=== PATIENT | female | born 1935 | race Caucasian/White ===

== ENCOUNTER 2017-02-26 07:22 | Outpatient (CLI) | payer MEDICARE, OTHER ==
[2013-10-13 15:34] VITALS: BP 178/72
[2017-02-26 08:06] LABS: eGFR (African) > 60; eGFR (Non-African) > 60
== END 2017-02-26 07:23 ==
LOC: LAB 07:22
PROVIDERS: ATTEND Physician Assistant
DX: E78.2 Mixed hyperlipidemia (principal); I10 Essential (primary) hypertension
CPT/HCPCS: 36415; 80053; 80061

== ENCOUNTER 2017-04-28 07:47 | Outpatient (CLI) | payer MEDICARE, OTHER ==
[2013-10-13 15:34] VITALS: BP 178/72
[2017-04-28 08:11] LABS: BASOPHILS % 0.8 (0.0-1.5); EOSINOPHILS % 3.1 % (0.0-6.8); MEAN CORPUSCULAR HEMOGLOBIN 30.1 pg (28.0-34.0); MEAN CORPUSCULAR VOLUME 90.4 fl (80.0-100.0); NEUTROPHILS # 3.2 # k/uL (1.4-7.7)
[2017-04-28 08:27] LABS: eGFR (African) > 60; eGFR (Non-African) > 60
== END 2017-04-28 09:02 ==
LOC: LAB 07:47
PROVIDERS: ATTEND Family Medicine
DX: R42 Dizziness and giddiness (principal); Z79.899 Other long term (current) drug therapy; E55.9 Vitamin D deficiency, unspecified; E78.2 Mixed hyperlipidemia
CPT/HCPCS: 36415; 80053; 80061; 80177; 82306; 85025

== ENCOUNTER 2017-06-24 16:05 | Outpatient (CLI) | payer MEDICARE, OTHER ==
[2013-10-13 15:34] VITALS: BP 178/72
== END 2017-06-24 16:30 ==
LOC: RAD 16:05
PROVIDERS: ATTEND Family Medicine
DX: R13.11 Dysphagia, oral phase (principal)
CPT/HCPCS: 74230

== ENCOUNTER 2017-08-12 14:35 | Outpatient (CLI) | payer MEDICARE, OTHER ==
[2013-10-13 15:34] VITALS: BP 178/72
--- NOTE | 2017-08-13 10:39 | OP Clinic Progress Note ---
REASON FOR VISIT: This delightful 81-year-old lady is seen accompanied by her who does a lot of the talking. By history, she has had some problems with coughing and swallowing. I retrieved a video swallow done several months ago and it is close to normal, certainly no severe abnormality and no obvious aspiration. When she tucks her chin down for some period of time, she begins to cough. Also , sometimes when she swallows, she chokes on things, particularly if they are extra dry or particularly big. Again, the video swallow, which is a good appropriate test to order, is essentially normal or it does not show any significant abnormality. Separately, but sometimes related, she has an exudate in the right ear canal. There is a hard brown pasty thin veneer covering the entire ear canal and the eardrum itself. Under the microscope in the clinic, I peeled this out entirely. I placed Gentamicin eardrops in the ear. I have written a prescription for once a day Gentamicin Ophthalmic Drops for that right ear. There is absolutely no hole in the eardrum and Gentamicin is ototoxic to the inner ear but there is absolutely no hole of the eardrum and this was looked at carefully with a microscope. Sometimes, there is also a neurogenic cough. In that regard, I have given her a trial of Elavil 25 mg 1 pill a day. I will see her back in 2 or 3 weeks. Also, by palpation, there is no evident neck mass. I used a flexible fiberoptic laryngoscope and got a good look at the nasopharynx, posterior oropharynx, tongue base, supraglottic larynx, and larynx. The vocal cords abduct and adduct well. There is no inflammation, masses, nor paralysis. There is a little thickening in the right pyriform sinus. There is no palpable mass nor no visible mass. PLAN: Again, on an empiric basis, I have given her a trial on Elavil 25 mg a day and see how she does, along with using the eardrops for the right ear and simply reassess in 2 or 3 weeks. cc: Dr. Rosetta ACEVEDO
== END 2017-08-12 14:36 ==
LOC: ENT 14:35
PROVIDERS: ATTEND Otolaryngology
DX: R13.11 Dysphagia, oral phase (principal)
CPT/HCPCS: G0463

== ENCOUNTER 2017-09-02 14:08 | Outpatient (CLI) | payer MEDICARE, OTHER ==
[2013-10-13 15:34] VITALS: BP 178/72
--- NOTE | 2017-09-03 10:38 | OP Clinic Progress Note ---
REASON FOR VISIT: This 80-year-old lady is seen accompanied by her who provides at least a moderate amount of the history. She has been seen with a history of a cough. A number of medications have not made any difference. On a trial basis, she has been given Elavil 25 mg a day. Initially, there was fairly significant improvement and then slowly the cough has come back. It is still not to the same degree that it had been when she initially began the treatment with the Elavil. The idea was that she had more of a neurogenic cough. Palpation of the neck had no evident palpable masses. Flexible fiberoptic laryngoscopy had not evident mass or lesion. There is no paralysis or cyst of the vocal cords and generally, she is not really hoarse. There is no undue erythema. No granulation tissue. PLAN: Slowly the cough has come back after fairly significant improvement initially. There can be some habituation to this medication; and as opposed to trying to find a different avenue, I have increased the dose but just by a small amount. I have asked her to take 1-1/2 tablets of the 25 mg of Elavil a day. I will see her back in the middle of October. cc: Dr. Rosetta ACEVEDO
== END 2017-09-02 14:13 ==
LOC: ENT 14:08
PROVIDERS: ATTEND Otolaryngology
DX: R05 Cough (principal)
CPT/HCPCS: 31575; G0463

== ENCOUNTER 2017-10-21 13:05 | Outpatient (CLI) | payer MEDICARE, OTHER ==
[2013-10-13 15:34] VITALS: BP 178/72
--- NOTE | 2017-10-22 09:13 | OP Clinic Progress Note ---
REASON FOR VISIT: Magnolia is being seen for some degree of a chronic cough. The duration seems to go either between forever and maybe 6 months. Her accompanies her. He facilitates with answering some of the questions. Some of this is because Magnolia does not hear well by history and they do not have the specifics of that. Again, I re-looked at her larynx. Although the vocal cords are very slightly bowed, there is no polyps or paralysis. There is no marked or increased erythema. There is grossly no severe inflammation in the interarytenoid area. Other possible contributing factors are both a history of reflux and a history of asthma for which she takes 2 inhalers. Although there is no obvious answer looking at the larynx for the first time or the second time, considerations may relate more to the patient's history. An interesting observation they make is that a lot of the cough is more severe when she tucks her head down. Whether this is when she is reading or doing a number of handiwork things particularly in the evening. Of note, they have not had their air ducts cleaned ever. The ideal that it may be a neurogenic-type of cough has not been successful and she continues to have no real improvement, although she does not seem to have any negative side effects from it. One could opt for upping the dosage. PLAN: I have asked them to try a different medication and to try Tessalon Perles at 200 mg and just take 1 sometime in the afternoon and see whether that has some effect. I have encouraged them to consider having their air ducts cleaned as they state this has never been done for their house and she does have a history of asthma for no obvious reason. I have asked them to recheck with this plan. I would comment that the stated that he did not intend to have the air ducts in their house cleaned currently. cc: Dr. Rosetta ACEVEDO
== END 2017-10-21 14:05 ==
LOC: OUT 13:05
PROVIDERS: ATTEND Otolaryngology
DX: R05 Cough (principal); J45.909 Unspecified asthma, uncomplicated
CPT/HCPCS: G0463

== ENCOUNTER 2018-04-12 14:49 | Outpatient (CLI) | payer MEDICARE, OTHER ==
[2013-10-13 15:34] VITALS: BP 178/72
--- NOTE | 2018-04-12 16:57 | Diagnostic Imaging Report ---
ADITYA ASENCIO [facility] [address] [facility] [address] [address] Report Submission Date: Apr 12, 2018 4:01:35 PM CDT Patient Study Name: VICKY SAENZ Date: Apr 12, 2018 3:21:03 PM CDT Modality Type: DX Gender: F Description: LOWER EXTREMITY : 31 Institution: [facility] Physician: ADITYA ASENCIO Examination: Plain film right foot History: CONTUSION (Hx) Findings: 3 views of the right foot demonstrates osteopenia. Articular degenerative changes. No fracture or dislocation. Calcaneal spurs. No soft tissue swelling. No joint effusion. Impression: Osteopenia and degenerative changes. No fracture. Electronically signed on Apr 12, 2018 4:01:35 PM CDT by: Ty ACEVEDO
== END 2018-04-12 14:50 ==
LOC: RAD 14:49
PROVIDERS: ATTEND Family Medicine
DX: S90.31XA Contusion of right foot, initial encounter (principal); Y92.9 Unspecified place or not applicable; Y93.9 Activity, unspecified; Y99.9 Unspecified external cause status
CPT/HCPCS: 73630

== ENCOUNTER 2018-04-27 12:08 | Outpatient (CLI) | payer MEDICARE, OTHER ==
[2013-10-13 15:34] VITALS: BP 178/72
--- NOTE | 2018-04-30 09:22 | HISTORY AND PHYSICAL REPORT ---
REFERRING PHYSICIAN: Dr. Rosetta Mccall Dear Dr. Mccall: HISTORY OF PRESENT ILLNESS: I had the opportunity of seeing Magnolia Hutton today. This is a delightful 82- year-old white female who presents today with her , Yogesh. She has a greater than 5 year history of low back pain. She indicates it is on her left side, low back, and lumbosacral in nature with more pain when she is standing and walking and relief with sitting but then the pain returns after she sits for a while. She denies leg pain. She denies incontinence of bowel or bladder. She denies symptoms of neurogenic claudication. She was in the [place] area and had an MRI done while she was there and they told her she needed back surgery but because of her past medical history, it was not an option. She tells me that I treated her family members and she would like to see if I could do anything to relieve her left-sided back pain symptoms. PAST MEDICAL HISTORY: 1. History of a CVA x3. 2. Respiratory disease. 3. Hypertension. 4. Chronic pain problems. 5. Cardiovascular disease. PAST SURGICAL HISTORY: 1. Tonsillectomy. 2. Sinus surgery. 3. Cardiac stents. CURRENT DAILY MEDICATIONS: 1. Plavix 75 mg daily. 2. Atorvastatin 40 mg daily. 3. ProAir inhaler 90 mcg 2 puffs b.i.d. 4. Metoprolol 100 mg b.i.d. 5. Oxybutynin 5 mg b.i.d. 6. Qvar inhaler 80 mcg 2 puffs b.i.d. 7. Losartan/HCTZ 100/12.5 mg daily. 8. Desloratadine 5 mg daily. 9. Aspirin 81 mg daily. 10. Garlic 1000 mg daily. 11. Lecithin 1200 mg daily. 12. Cinnamon 1000 mg daily. 13. Calcium 600 mg daily. 14. Flonase 2 sprays per nostrils daily. ALLERGIES: She has no known drug allergies. SOCIAL HISTORY: She is . She lives at home with her . She is a former smoker. She quit 50 plus years ago. Drinks alcohol rarely on a social occasion. Denies recreational drugs. Unknown employment or disability status. FAMILY HISTORY: Mother with pain problems related to her arthritis. Father with heart disease. REVIEW OF SYSTEMS: No complaints for review of systems within the last month or so. Pain is worsened with prolonged standing in one position or increased physical activity and bending. Pain is improved with sitting, laying, and at rest. PHYSICAL EXAMINATION: Vital Signs: BP: 140/80, P: 75, R: 18, oxygen saturation is 97% on room air. General: The patient is a well nourished, well developed female in no apparent distress. Awake, alert, and oriented. HEENT: Pupils are equal, round, and reactive to light and accommodation. Extraocular movements intact. No facial droop. Neck: There is full range of motion of the cervical spine. No evidence of adenopathy. Thyroid is nontender, not enlarged. Carotids are without bruits. Chest: Clear to auscultation bilaterally. Normal chest excursion. Heart: Regular rate and rhythm without murmur. Abdomen: Benign. Normoactive bowel sounds. Motor/sensory: Intact in the upper and lower extremities. Moves all extremities freely. Back: There is a positive assisted extension and extension rotation finding. There is reproducible positive pain over the left lumbosacral facets. Negative straight leg raise. Negative femoral nerve stretch. Negative GEORGE. Strength is 5/5 and equal in the lower extremities. Dorsiflexion and plantar flexion of the feet are intact. 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 PLAN: I believe that this nice lady is having facet mediated pain on the left side that is identifiable. She had a positive assisted extension and extension rotation finding and focal back pain. She in fact tells me that after I palpated the joint, the pain seemed to have gone away, and I have recommended a facet medial branch block at L5 and sacral ala and possibly L4 and possible radiofrequency neurolysis. There is a considerable concern regarding a cerebrovascular accident in coming off of Plavix. I am going to defer to Dr. Mccall and see if she would like to assist us with a Lovenox bridge. I will initiate physical therapy and ultrasound at this time, as this may help, but I do not think this patient would be a candidate for interventional therapy because of her propensity for bleeding and bruising on Plavix. cc: Dr. Rosetta ACEVEDO
== END 2018-04-27 12:10 ==
LOC: OUT 12:08
PROVIDERS: ATTEND Anesthesiology Pain Medicine
DX: M46.96 Unspecified inflammatory spondylopathy, lumbar region (principal); Z79.01 Long term (current) use of anticoagulants
CPT/HCPCS: 99213; 99214; G0463

== ENCOUNTER 2018-06-09 08:15 | Emergency (ER) | payer MEDICARE, OTHER ==
--- NOTE | 2018-06-09 08:22 | ED Physician Documentation ---
General Adult - HISTORIAN Historian: patient - HPI Stated Complaint: skin tear Chief Complaint: General Adult Onset: hours (1) Timing: still present Severity: mild Further Comments: yes (she hit her leg on the curb and she is on a blood thinner.) - ROS CONST: no problems EYES/ENT: none CVS/RESP: none GI/: none MS/SKIN/LYMPH: none NEURO/PSYCH: denies: headache, dizziness - PAST HX Past History: hypertension, other (chronic low back pain ) Other History: none Surgeries/Procedures: none Immunizations: UTD Allergies/Adverse Reactions: Allergies Allergy/AdvReac Type Severity Reaction Status Date / Time No Known Allergies Allergy Unverified 06/09/18 08:32 Home Medications: Ambulatory Orders Medication Instructions Recorded Aspirin 81 mg PO DAILY u2 02/25/17 - SOCIAL HX Smoking History: cigarettes Alcohol Use: none Drug Use: none - FAMILY HX Family History: No - VITAL SIGNS Vital Signs: Vital Signs Temp Pulse Resp BP Pulse Ox 178/72 10/13/13 15:26 - REVIEWED ASSESSMENTS Nursing Assessment Reviewed: Yes Vitals Reviewed: Yes General Adult Physical Exam - PHYSICAL EXAM GENERAL APPEARANCE: no distress EENT: eye inspection normal NECK: normal inspection RESPIRATORY: no resp distress, chest non-tender, breath sounds normal CVS: reg rate & rhythm, heart sounds normal, equal pulses, no murmur ABDOMEN: soft SKIN: other (4 in long superfical skin tear on right lower leg ) EXTREMITIES: non-tender NEURO: oriented X3, CN's nml as tested, motor nml, sensation nml, mood/affect nml, cognition normal Discharge Clincal Impression: Skin tear Referrals: Rosetta Mccall MD [Primary Care Provider] - 2 Days Comments: 1. Keep area clean and dry 2. Elevate when possible 3. Any increased redness, drainage, swelling or other signs of infection notify PCP 4. Return to ER For any concerns Condition: Stable Disposition: 01 HOME, SELF-CARE Decision to Admit: NO Date of Decison to Admit: 06/09/18 Decision Time: 09:01
[2018-06-09 09:08] VITALS: BP 177/66
== END 2018-06-09 09:05 | disposition home or self-care (01) ==
LOC: ED 08:15
DX: S81.801A Unspecified open wound, right lower leg, initial encounter (principal); W19.XXXA Unspecified fall, initial encounter; Y92.9 Unspecified place or not applicable; Y93.9 Activity, unspecified; Y99.9 Unspecified external cause status
CPT/HCPCS: 99282

== ENCOUNTER 2018-06-22 08:38 | Emergency (ER) | payer MEDICARE, OTHER ==
--- NOTE | 2018-06-22 09:19 | ED Physician Documentation ---
General Adult - HISTORIAN Historian: patient - HPI Stated Complaint: wound draining Chief Complaint: Lower Extremity Problem - ROS CONST: no problems. denies: fever, chills CVS/RESP: denies: cough - PAST HX Past History: asthma, other (CAD, hyperlipidemia) Other History: other (s/p CVAs) Surgeries/Procedures: other (tonsilectomy, cardiac stentning) Immunizations: referred to PCP Allergies/Adverse Reactions: Allergies Allergy/AdvReac Type Severity Reaction Status Date / Time No Known Allergies Allergy Verified 06/22/18 09:17 Home Medications: Ambulatory Orders Medication Instructions Recorded Aspirin 81 mg PO DAILY u2 02/25/17 Cephalexin [Keflex] 500 mg PO TID #21 capsule 06/22/18 Cephalexin [Keflex] 500 mg PO TID #21 capsule 06/22/18 - SOCIAL HX Smoking History: non-smoker Alcohol Use: none Drug Use: none - FAMILY HX Family History: Yes (CAD, CVA) - VITAL SIGNS Vital Signs: Vital Signs Temp Pulse Resp BP Pulse Ox 97.9 F 80 16 163/76 06/22/18 08:52 06/22/18 08:52 06/22/18 08:52 06/22/18 08:52 - REVIEWED ASSESSMENTS Nursing Assessment Reviewed: Yes Vitals Reviewed: Yes General Adult Physical Exam - PHYSICAL EXAM GENERAL APPEARANCE: no distress RESPIRATORY: no resp distress, chest non-tender, breath sounds normal. No: wheezes, rales, rhonchi CVS: reg rate & rhythm, heart sounds normal, equal pulses, no murmur, no gallop SKIN: other (Patient has a c shape skin tear to the medial lower right leg associated with some swelling nd erythema (about 10 cm above wuond and down into the ankle area). Skin over the wound is movable like a blister. Very little clear serosanguinous drainable on dressing. ) EXTREMITIES: non-tender NEURO: oriented X3, mood/affect nml, cognition normal Discharge Clincal Impression: Cellulitis of leg, right Prescriptions: Cephalexin [Keflex] 500 mg PO TID #21 capsule Cephalexin [Keflex] 500 mg PO TID #21 capsule Referrals: Rosetta Mccall MD [Primary Care Provider] - 2 Days Additional Instructions: Continue to dress the foot as you have been with nonadherent dressing, then wrap with gauze. Take cephalexin three times a day as directed. Appointment with Dr Newell at 9:45 AM on ThursdayJune 28. Condition: Stable Disposition: 01 HOME, SELF-CARE Decision to Admit: NO Date of Decison to Admit: 06/22/18 Decision Time: 09:19
[2018-06-22 09:42] VITALS: BP 196/75
== END 2018-06-22 09:35 | disposition home or self-care (01) ==
LOC: ED 08:38
DX: L03.115 Cellulitis of right lower limb (principal)
CPT/HCPCS: 99282

== ENCOUNTER 2018-08-27 12:04 | Emergency (ER) | payer MEDICARE, OTHER ==
--- NOTE | 2018-08-27 12:23 | ED Physician Documentation ---
Upper Extremity Injury - HISTORIAN Historian: patient - HPI Stated Complaint: Right Shoulder Discomfort Chief Complaint: Shoulder Injury/ Pain Onset: days ago (3) Where: home Severity: mild Duration: persistent since Context: other (She reports she "slept hard" arm was bent when she woke up and she has had pain in her shoulder/arm since. She does not take Ibuprofen due to blood thinners. She is taking tylenol and this alone is not helping much. Denies any other pain or issues ) Modifying Factors: pain on movement - ROS CONST: no problems CVS/RESP: none NEURO: none MS/SKIN/LYMPH: other (right arm pain ) GI/: denies: nausea, vomiting - PAST HX Past History: other (hypertension ) Allergies/Adverse Reactions: Allergies Allergy/AdvReac Type Severity Reaction Status Date / Time No Known Allergies Allergy Verified 06/22/18 09:17 Home Medications: Ambulatory Orders Medication Instructions Recorded Aspirin 81 mg PO DAILY u2 02/25/17 - SOCIAL HX Smoking History: non-smoker Alcohol Use: none Drug Use: none - FAMILY HX Family History: none - VITAL SIGNS Vital Signs: Vital Signs Temp Pulse Resp BP Pulse Ox 97.1 F L 68 18 170/55 99 08/27/18 12:05 08/27/18 12:05 08/27/18 12:05 08/27/18 12:05 08/27/18 12:05 - REVIEWED ASSESSMENTS Nursing Assessment Reviewed: Yes Vitals Reviewed: Yes Upper Extremity Injury Physic - Physical Exam General Appearance: no acute distress, alert Hand: normal inspection, non-tender, no evidence of injury, normal ROM Wrist: normal inspection, non-tender, no evidence of injury, normal ROM Elbow/Forearm: normal inspection, non-tender, no evidence of injury, normal ROM Shoulder: normal inspection, no evidence of injury, normal ROM, pain (passive elevation ), soft tissue tenderness Neuro/Vascular/Tendon: no vascular compromise, motor nml, sensation nml Skin: warm,dry Head/ENT: nml inspection Neck/Back: nml inspection, non-tender Resp/CVS: chest non-tender, breath sounds nml, heart sounds nml, no resp. distress, lungs clear, reg. rate & rhythm Abdomen: non-tender Discharge Clincal Impression: Shoulder pain, acute Qualifiers: Laterality: right Qualified Code(s): M25.511 - Pain in right shoulder Referrals: Rosetta Mccall MD [Primary Care Provider] - 2 Days Comments: 1. Cyclobenzaprine 5 mg take 1 by mouth every 12 hours as needed for pain 2. Medrol dose pack - as directed 3. continue Tylenol as directed on bottle 4. Heating pad or ice 5. See PCP in 2-4 days 6. Return to ER for any concerns Condition: Stable Disposition: 01 HOME, SELF-CARE Decision to Admit: NO Date of Decison to Admit: 08/27/18 Decision Time: 12:27
[2018-08-27 13:24] VITALS: BP 152/64
== END 2018-08-27 12:55 | disposition home or self-care (01) ==
LOC: ED 12:04
DX: M25.511 Pain in right shoulder (principal)
CPT/HCPCS: 99283

== ENCOUNTER 2018-08-31 10:58 | Outpatient (CLI) | payer MEDICARE, OTHER ==
--- NOTE | 2018-08-31 13:33 | Diagnostic Imaging Report ---
ADITYA ASENCIO [facility] [address] [facility] [address] Report Submission Date: Aug 31, 2018 11:32:52 AM CDT Patient Study Name: VICKY SAENZ Date: Aug 31, 2018 11:00:21 AM CDT Modality Type: DX Gender: F Description: SHOULDER : 31 Institution: [facility] Physician: ADITYA ASENCIO Right shoulder History: Acute pain Three views of the right shoulder were obtained which demonstrate movement of the humeral head into internal and external rotation without evidence for acute fracture or dislocation. There is mild narrowing of glenohumeral joint space. The acromioclavicular joint is intact. Impression: Mild degenerative narrowing of glenohumeral joint space. Otherwise, no osseous abnormality. Electronically signed on Aug 31, 2018 11:32:52 AM CDT by: Cassie ACEVEDO
== END 2018-08-31 13:22 ==
LOC: RAD 10:58
PROVIDERS: ATTEND Family Medicine
DX: M25.511 Pain in right shoulder (principal)
CPT/HCPCS: 73030

== ENCOUNTER 2019-08-17 15:23 | Outpatient (CLI) | payer MEDICARE, OTHER ==
[2019-08-25 10:25] LABS: BASOPHILS % 0.5 % (0.0-1.5); NEUTROPHILS # 4.3 # k/uL (1.4-7.7)
[2019-08-25 10:26] LABS: eGFR (Non-African) > 60
--- NOTE | 2019-09-09 15:00 | Diagnostic Imaging Report ---
ADITYA ASENCIO [facility] [address] [facility] [address] [place], [place]. [address] Report Submission Date: Aug 17, 2019 3:48:28 PM CDT Patient Study Name: VICKY SAENZ Date: Aug 17, 2019 3:34:38 PM CDT Modality Type: CT\SR Gender: F Description: CT HEAD W/O : 31 Institution: [facility] Physician: ADITYA ASENCIO Examination: CT head without contrast History: DIZZINESS AND HEADACHES Comparison exam: None available Technique: Noncontrast head CT protocol. Findings: Ventricles and sulci are prominent. Cerebrocerebellar parenchyma demonstrates periventricular low attenuation consistent with small vessel disease. No evidence for parenchymal hemorrhage. No evidence for mass or mass effect. No midline shift. No extra axial fluid collections. Partial visualization of the paranasal sinuses, mastoid air cells, orbits, skull and scalp without gross irregularity. Anterior falx calcifications. Impression: Advanced age related changes. No acute parenchymal process. No hemorrhage. Electronically signed on Aug 17, 2019 3:48:28 PM CDT by: Ty ACEVEDO
== END 2019-08-17 15:33 | disposition home or self-care (01) ==
LOC: RAD 15:23
PROVIDERS: ATTEND Family Medicine
DX: R42 Dizziness and giddiness (principal); R51 Headache
CPT/HCPCS: 36415; 70450; 80053; 85025

== ENCOUNTER 2019-09-06 10:25 | Emergency (ER) | payer MEDICARE, OTHER ==
[2019-09-06 10:50] LABS: BASOPHILS % 0.4 % (0.0-1.5); NEUTROPHILS # 4.4 # k/uL (1.4-7.7)
--- NOTE | 2019-09-06 10:53 | ED Physician Documentation ---
General Adult - HISTORIAN Historian: patient, spouse - HPI Stated Complaint: weakness, dizziness Chief Complaint: General Adult Additional Information: Patient presents to ED after an episode of dizziness this morning. Patient st ates she woke up at 0600 this morning and felt fine. She was reading in a chair, after standing she became dizzy and began to chill. Spouse reports she almost fell over but he caught her. He took her blood pressure and it was 200/something. Patient was seen last month by Dr. Mccall for similar symptoms. Patient was sent to occupational therapy with improvement/resolution of dizziness until today. Patient reports diarrhea x 5 this morning but states she ate apples yesterday and is likely the cause of her loose stools. Patient denies chest pain, shortness of breath, fever, syncope. Onset: days ago (30) Timing: still present Severity: moderate - ROS CONST: weakness, chills EYES/ENT: none CVS/RESP: denies: chest pain, shortness of breath GI/: abdominal pain (crampy with diarrhea), diarrhea MS/SKIN/LYMPH: none NEURO/PSYCH: dizziness. denies: difficulty walking, difficulty with speech - PAST HX Past History: hypertension Other History: none Surgeries/Procedures: none Allergies/Adverse Reactions: Allergies Allergy/AdvReac Type Severity Reaction Status Date / Time horseradish Allergy Verified 09/06/19 10:56 Home Medications: Ambulatory Orders Medication Instructions Recorded Aspirin 81 mg PO DAILY u2 02/25/17 - SOCIAL HX Smoking History: non-smoker Alcohol Use: none Drug Use: none - FAMILY HX Family History: No - VITAL SIGNS Vital Signs: Vital Signs Temp Pulse Resp BP Pulse Ox 152/64 08/27/18 12:55 - REVIEWED ASSESSMENTS Nursing Assessment Reviewed: Yes Vitals Reviewed: Yes Progress - Progress Progress: 1145 HR since presentation 42-[address] Mccall. She states no reason to admit. Recommends holding Metoprolol today. Restart tomorrow at 50mg twice daily. - EKG/XRAY/CT Comments: 1037 Sinus bradycardia 50bpm NO ST elevation ED Results Lab/Radiology - Lab Results Lab Results: UA - negative. - Radiology Radiology Impressions: Report Submission Date: Sep 06, 2019 11:20:22 AM CDT Patient Study Name: VICKY SAENZ Date: Sep 06, 2019 10:49:38 AM CDT Modality Type: DX Gender: F Description: CHEST 2VIEW : 31 Institution: [facility] Physician: SARA KLINE Exam: Chest two views. History: Dizziness. No previous studies are available for comparison. Lung garcia are well aerated without veronika consolidation or effusion. Heart and mediastinal contour are normal. No bony abnormalities are seen. Impression: No veronika consolidation or effusion. Electronically signed on Sep 06, 2019 11:20:22 AM CDT by: Jovany Hay Report Submission Date: Sep 06, 2019 11:40:19 AM CDT Patient Study Name: VICKY SAENZ Date: Sep 06, 2019 10:55:12 AM CDT Modality Type: CT\SR Gender: F Description: CT BRAIN W/O CONTRAST : 31 Institution: [facility] Physician: SARA KLINE Head CT without contrast History: Dizziness Comparison: August 17, 2019. Findings: There is age-related cortical volume loss with extensive small vessel ischemic disease. Small, old white matter type infarcts are present of bilateral almaraz radiata. There is no positive mass effect or intra/extra-axial hemorrhage. There is no evidence for acute infarct involving major vascular distribution. Atherosclerotic calcifications of the left vertebral artery are present. Paranasal sinuses and mastoid air cells are clear and the calvarium is intact. Impression: No acute intracranial abnormality. No change compared with August 17 2019. Electronically signed on Sep 06, 2019 11:40:19 AM CDT by: Cassie Posada - Orders Orders: ED Orders Category Date Time Status Place IV Lock 1T Care 09/06/19 10:41 Active CHEST 2VIEW [RAD] Stat Exams 09/06/[address] BRAIN W/O CONTRAST Stat Exams 09/06/19 Ordered CBC/PLATELET/DIFF Routine Lab 09/06/19 Ordered CMP Routine Lab 09/06/19 Ordered FREE T4 Stat Lab 09/06/19 10:46 Received NT BNP Stat Lab 09/06/19 Ordered THYROID STIMULATING HORMONE Stat Lab 09/06/19 10:46 Received TROPONIN I Stat Lab 09/06/19 Ordered UA W/MICRO IF INDICATED Routine Lab 09/06/19 10:42 Ordered General Adult Physical Exam - PHYSICAL EXAM GENERAL APPEARANCE: no distress EENT: CELENA NECK: supple RESPIRATORY: no resp distress, chest non-tender, breath sounds normal CVS: bradycardia ABDOMEN: soft, normal bowel sounds, non-tender BACK: normal inspection SKIN: warm/dry, normal color EXTREMITIES: non-tender, normal range of motion, no edema NEURO: oriented X3, mood/affect nml Discharge Clincal Impression: Symptomatic bradycardia Referrals: Rosetta Mccall MD [Primary Care Provider] - 2 Days Additional Instructions: 1. HOLD Metoprolol today 2. Restart Metoprolol at 50mg twice daily tomorrow. Dr. Mccall with call in new prescription 3. Drink plenty of fluid to maintain proper hydration. 4. Follow up with Dr. Mccall within 2 weeks 5. Return to ER for new or worsening symptoms Condition: Stable Disposition: 01 HOME, SELF-CARE Decision to Admit: NO Date of Decison to Admit: 09/06/19 Decision Time: 12:39
--- NOTE | 2019-09-06 11:24 | Diagnostic Imaging Report ---
PATIENT MR#: [id number] PATIENT PATIENT NAME: VICKY SAENZ DATE OF : 1935 REFERRING PHYSICIAN: Arlet Jeffries EXAM DATE: 09/06/2019 ACCESSION NUMBER: [id number] EXAM DESCRIPTION: CHEST 2VIEW Exam: Chest two views. History: Dizziness. No previous studies are available for comparison. Lung garcia are well aerated without veronika consolidation or effusion. Heart and mediastinal contour are normal. No bony abnormalities are seen. Impression: No veronika consolidation or effusion. Read by: Dr. Jovany Munoz Transcribed by: Transcribed Date: Electronically signed by: Dr. Jovany Munoz Date signed: 09/06/2019 11:23:45 AM
[2019-09-06 11:32] LABS: APPEARANCE,URINE CLEAR (CLEAR); COLOR,URINE YELLOW (YELLOW); OCCULT BLOOD,URINE NEGATIVE (NEGATIVE); UROBILINOGEN URINE 0.2 Eu (0.2-1.0)
[2019-09-06 11:37] LABS: eGFR (Non-African) > 60
--- NOTE | 2019-09-06 11:44 | Diagnostic Imaging Report ---
PATIENT MR#: [id number] PATIENT PATIENT NAME: VICKY SAENZ DATE OF : 1935 REFERRING PHYSICIAN: Arlet Jeffries EXAM DATE: 09/06/2019 ACCESSION NUMBER: [id number] EXAM DESCRIPTION: CT BRAIN W/O CONTRAST Head CT without contrast History: Dizziness Comparison: August 17, 2019. Findings: There is age-related cortical volume loss with extensive small vessel ischemic disease. 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 There is no positive mass effect or in tra/extra-axial hemorrhage. There is no evidence for acute infarct involving major vascular distribution. Atheroscl erotic calcifications of the left vertebral artery are present. Paranasal sinuses and mastoid air cells are clear and the calvarium is intact. Impression: No acute intracranial abnormality. No change compared with August 17 2019. Read by: Dr. Cassie Posada Transcribed by: Transcribed Date: Electronically signed by: Dr. Cassie Posada Date signed: 09/06/2019 11:43:45 AM
[2019-09-06 13:01] VITALS: BP 163/52
== END 2019-09-06 12:59 | disposition home or self-care (01) ==
LOC: ED 10:25
DX: R00.1 Bradycardia, unspecified (principal)
CPT/HCPCS: 36415; 70450; 71046; 80053; 81002; 83880; 84439; 84443; 84484; 85025; 99282; S1016

== ENCOUNTER 2019-11-03 14:50 | Emergency (ER) | payer MEDICARE, OTHER ==
--- NOTE | 2019-11-03 15:20 | ED Physician Documentation ---
General Adult - HISTORIAN Historian: patient - HPI Stated Complaint: Left foot swelling Chief Complaint: General Adult Onset: days ago Timing: still present Severity: moderate Further Comments: yes (Pt is an 83 yo female with some swelling of her L foot. Pt had a skin tear of her L calf last week, which her steri-striped and has been checking daily. Pt has chronic bruising of both LE's. She does not have calf pain or sob.) - ROS CONST: no problems EYES/ENT: none CVS/RESP: none GI/: none MS/SKIN/LYMPH: other (recent skin tear L calf) - PAST HX Past History: hypertension, other (HLD) Surgeries/Procedures: other (tonsils & adenoids) Allergies/Adverse Reactions: Allergies Allergy/AdvReac Type Severity Reaction Status Date / Time horseradish Allergy Verified 11/03/19 15:10 Home Medications: Ambulatory Orders Medication Instructions Recorded Aspirin 81 mg PO DAILY u2 02/25/17 Amoxicillin/Potassium Clav 1 tab PO BID 11/03/19 [Amox-Clav 875-125 mg Tablet] - SOCIAL HX Smoking History: non-smoker - FAMILY HX Family History: No - VITAL SIGNS Vital Signs: Vital Signs Temp Pulse Resp BP Pulse Ox 163/52 09/06/19 12:59 - REVIEWED ASSESSMENTS Nursing Assessment Reviewed: Yes Vitals Reviewed: Yes Progress - Progress Progress: Examination: Ultrasound left vein History: SWELLING IN LEFT FOOT Comparison exam: one available Findings: Sonographic evaluation of the left lower extremity venous system from the groin to the popliteal fossa inclusive. Normal compressibility. No luminal filling defect. Normal waveforms and response to augmentation. No popliteal region fluid collection. Impression: No evidence for deep venous thrombosis keep leg elevated may DELBERT wrap follow up with primary provider or return to ER if you have new symptoms or concerns. General Adult Physical Exam - PHYSICAL EXAM GENERAL APPEARANCE: no distress NECK: normal inspection, supple RESPIRATORY: no resp distress, chest non-tender, breath sounds normal CVS: reg rate & rhythm, heart sounds normal ABDOMEN: soft, no organomegaly, normal bowel sounds BACK: normal inspection, no CVA tenderness SKIN: other (chronic ecchymosis LE's b/l) EXTREMITIES: non-tender, normal range of motion, edema (L foot, does not affect calf) NEURO: oriented X3, motor nml, sensation nml Discharge Clincal Impression: Swelling of left foot Referrals: Rosetta Mccall MD [Primary Care Provider] - Condition: Stable Disposition: 01 HOME, SELF-CARE Decision to Admit: NO Decision Time: 17:25
--- NOTE | 2019-11-03 16:30 | Diagnostic Imaging Report ---
PATIENT MR#: [id number] PATIENT PATIENT NAME: VICKY SAENZ DATE OF : 1935 REFERRING PHYSICIAN: Nba rFench EXAM DATE: 11/03/2019 ACCESSION NUMBER: [id number] EXAM DESCRIPTION: US U OR L EXT VEINS UNILAT Examination: Ultrasound left vein History: SWELLING IN LEFT FOOT Comparison exam: one available Findings: Sonographic evaluation of the left lower extremity venous system from the groin to the popl iteal fossa inclusive. Normal compressibility. No luminal filling defect. Normal waveforms and response to augmen tation. No popliteal region fluid collection. Impression: No evidence for deep venous thrombosis. Read by: Dr. Ty Zamora Transcribed by: Transcribed Date: Electronically signed by: Dr. Ty Zamora Date signed: 11/03/2019 4:29:10 PM
[2019-11-03 18:34] VITALS: BP 173/63
== END 2019-11-03 17:20 | disposition home or self-care (01) ==
LOC: ED 14:50
DX: M79.89 Other specified soft tissue disorders (principal)
CPT/HCPCS: 99282; 99283